=== PATIENT | female | born 1950 | race Caucasian/White ===

== ENCOUNTER 2018-08-10 19:07 | Inpatient (IN) | payer OTHER ==
[~2018-08-10] VITALS: Ht 162.6 cm; Wt 70.5 kg
[~2018-08-10 19:07] MED LIST: ADVAIR 250-501 EACH INH; ALLER-TEC D 5-1 EACH PO; BAYER CHEWABLE81 MG PO; CELEXA 20 MG TA20 MG PO; DIOVAN 80 MG TA80 M1 PER TUBE; LEVOTHYROXINE 0.1 MG PO; MEGARED PLANT-300 MG PO; OCUVITE LUTEIN1 EAC1 PO; OMEPRAZOLE20 M1 PO; OXYCODONE HCL 55 MG PO; STOOL SOFTENER100 MG PO; TOPROL XL50 MG PO; XANAX 0.5 MG0.5 MG PO; ZEGERID OTC 201 EACH PO; ZOCOR20 MG PO
[2018-08-10 19:14] VITALS: BP 204/75
[2018-08-10] MEDS ORDERED: NF (19:41)
[2018-08-10 20:35] LABS: ABSOLUTE NEUTROPHILS 3.6 thou/uL (1.4-8.2); BASOPHILS 0.6 % (0.0-2.0); EOSINOPHILS 1.9 % (0.0-3.0); HEMATOCRIT 33.3 % (37.0-47.0); HEMOGLOBIN 11.6 gm/dL (12.0-15.0); LYMPHOCYTES 24.3 % (24.0-44.0); MCH 33.4 pg (26.0-34.0); MCHC 34.8 g/dL (28.0-37.0); MONOCYTES 8.4 % (1.0-8.0); PLATELET COUNT 182 thou/uL (150-400); POLYS 64.8 % (36.0-66.0); RBC 3.47 mil/uL (4.20-5.00); RDW 12.6 % (10.5-14.5); WBC 5.6 thou/uL (4.0-11.0)
[2018-08-10 20:44] LABS: ANION GAP 7 mmol/L (7-16); BUN 20 mg/dL (7-18); CALCIUM 10.6 mg/dL (8.5-10.1); CHLORIDE 104 mmol/L (98-107); CO2 28 mmol/L (21-32); GLUCOSE 109 mg/dL (74-106); POTASSIUM 3.6 mmol/L (3.5-5.1); SODIUM 139 mmol/L (136-145)
[2018-08-10 20:51] LABS: ALBUMIN 3.9 g/dL (3.4-5.0); SGOT 26 U/L (15-37); SGPT 35 U/L (30-65); TOTAL BILIRUBIN 0.2 mg/dL (<0.1-1.0); TROPONIN-I <0.06 ng/mL (<0.06)
[2018-08-10 21:38] VITALS: BP 130/67
[2018-08-10 21:39] VITALS: BP 130/67
[2018-08-10 22:14] VITALS: BP 130/67
[2018-08-10] MEDS ORDERED: XANAX 0.5 MG0.5 MG PO (22:52)
[2018-08-10 22:55] VITALS: BP 145/57
[2018-08-10] MEDS ORDERED: PROTONIX40 M1 PO (23:00)
[2018-08-10] MEDS ORDERED: PROBIOTIC1 EAC1 PO (23:02)
[2018-08-10] MEDS ORDERED: ZYRTEC10 M5 PO (23:05)
[2018-08-10] MEDS ORDERED: COLACE100 MG PO (23:06)
[2018-08-10 23:57] LABS: CHOLESTEROL 159 mg/dL (<200); HDL CHOLESTEROL 50 mg/dL (>40); LDL CHOLESTEROL 82 mg/dL (<100); TC:HDL 3.2 Ratio (Not establshd); TRIGLYCERIDE 139 mg/dL (<150); VLDL 28 mg/dL (<40)
[2018-08-10 23:58] LABS: SERUM ASSESSMENT Clear
[2018-08-11] MEDS ORDERED: LIPITOR 20 MG T20 M1 PO (00:10)
[2018-08-11 00:50] VITALS: BP 138/50
--- NOTE | 2018-08-11 03:55 | NUR ---
ADMITED FROM ED AROUND 2229. PT STATES PRESENTED TO ED WITH CP RADIATING TO LEFT ARM AND JAW, SOA, NITRO AND MORPHINE ED PER EMAR PAIN RELIEVED. PT DENIES CP, SOA, DIZZINESS, OR ANY RELATED SYMPTOMS SINCE ARRIVING TO CCU. MEDRECONCIL AND ADMISSION COMPLETE, DOCUMENT CONTROL SUPERVISOR SAW PT AT BEDSIDE. PT STATED SHE DID NOT TAKE ANY OF HER MEDS ALL DAY 08/10/18. BP ELEVATED. HS MEDS PER EMAR. AM VITALS BP LOW 100'S ASYMPTOMATIC. PLAN FOR ECHO AND TROPS THIS AM. WILL CONTINUE TO MONITOR AND WITH POC.
[2018-08-11 05:35] VITALS: BP 108/44
[2018-08-11 07:24] VITALS: BP 118/50
--- NOTE | 2018-08-11 08:48 | EKG ---
[address] [address] ELECTROCARDIOGRAM REPORT Name: NHUNG LIN Room #: 216-P ADM IN M.R.#: [id number] ������������������ Admission: 08/10/18 ������������������ Attend Phys: Niko Burgess MD Discharge: ������������������ Date of : 46 Report #: [id number] ����������������������������������������������������������������� [id number] THIS REPORT FOR: //name// [facility] ED Test Date: 2018-08-10 Test Time: 19:20:38 Pat Name: NHUNG LIN Department: Room: 216 Gender: F Esl Professor: MANUEL : 1950 Requested By: Angelic Youssef Order Number: [id number] MD: Juan Alberto Corbin Measurements Intervals [place] Rate: 81 P: 16 ME: 156 QRS: -6 QRSD: 82 T: 82 QT: 353 QTc: 410 Interpretive Statements Sinus rhythm Minimal ST depression, lateral leads Compared to ECG 08/29/2013 18:06:31 ST (T wave) deviation now present Electronically Signed On 08-11-2018 8:48:39 CDT by Juan Alberto Corbin [email or web address] ��������������������������������������������� <ELECTRONICALLY SIGNED> ���������������������������������������� By: Juan Alberto Corbin MD ��������������������������������������������� 08/11/18 0848 19 19 Juan Alberto Corbin MD /EPI
--- NOTE | 2018-08-11 08:50 | EKG ---
[address] [address] ELECTROCARDIOGRAM REPORT Name: NHUNG LIN Room #: 216-P ADM IN M.R.#: [id number] ������������������ Admission: 08/10/18 ������������������ Attend Phys: Niko Burgess MD Discharge: ������������������ Date of : 46 Report #: [id number] ����������������������������������������������������������������� [id number] THIS REPORT FOR: //name// ED Test Date: 2018-08-10 Test Time: 20:37:07 Pat Name: NHUNG LIN Department: Room: 216 Gender: F Assistant Banquet Manager: krystian : 1950 Requested By: Angelic Youssef Order Number: [id number] MD: Juan Alberto Corbin Measurements Intervals [place] Rate: 72 P: 31 CT: 162 QRS: -3 QRSD: 87 T: 73 QT: 411 QTc: 450 Interpretive Statements Sinus rhythm Minimal ST depression, lateral leads Baseline wander in lead(s) V2 Compared to ECG 08/29/2013 18:06:31 ST (T wave) deviation now present Electronically Signed On 08-11-2018 8:50:11 CDT by Juan Alberto Corbin [email or web address] ��������������������������������������������� <ELECTRONICALLY SIGNED> ���������������������������������������� By: Juan Alberto Corbin MD ��������������������������������������������� 08/11/18 0850 36 36 Juan Alberto Corbin MD /EPI
--- NOTE | 2018-08-11 11:33 | 2DMMODE ---
[facility] [address] [place] [address] 2 D/M-MODE ECHOCARDIOGRAM Name: NHUNG LIN Room #: 216-P ADM IN M.R.#: [id number] ������������� Admission: 08/10/18 ������������� Attend Phys: Niko Burgess MD Discharge: ��� ������������� ��� Date of : 46 Date of Service: 08/11/18 1132 �� Report #: [id number] �������� ��������������������������������������������[id number] THIS REPORT FOR: //name// APPROVED REPORT Study performed: 08/11/2018 10:28:53 EXAM: Comprehensive 2D, Doppler, and color-flow Echocardiogram Patient Location: Echo lab Room #: [place] Status: routine BSA: 1.76 HR: 65 bpm BP: 118/50 mmHg Rhythm: NSR Other Information Study Quality: Good Indications CAD Chest Pain Hypertension/HDD CABG 2D Dimensions RVDd: 25.29 mm IVSd: 8.68 (7-11mm) LVOT Diam: 17.26 (18-24mm) LVDd: 42.40 mm PWd: 8.95 (7-11mm) Ascending Ao: 26.55 (22-36mm) LVDs: 27.49 (25-40mm) Aortic Root: 29.18 mm IVC: 17.00 mm Volumes Left Atrial Volume (Systole) Single Plane 4CH: 30.05 mL Single Plane 2CH: 36.98 mL LA ESV Index: 22.00 mL/m2 Aortic Valve AoV Peak Sandro.: 1.48 m/s AO Peak Gr.: 8.77 mmHg LVOT Max P.23 mmHg LVOT Max V: 0.75 m/s RUPERTO Vmax: 1.18 cm2 Mitral Valve [facility] [address] [address] 2 D/M-MODE ECHOCARDIOGRAM Name: NHUNG LIN Room #: 216-P [facility] IN .R.#: [id number] ������������� Admission: 08/10/18 ������������� Attend Phys: Niko Burgess MD Discharge: ��� ������������� ��� Date of : 46 Date of Service: 08/11/18 1132 �� Report #: [id number] �������� ��������������������������������������������[id number] E/A Ratio: 0.9 MV Decel. Time: 192.78 ms MV E Max Sandro.: 0.82 m/s MV A Sandro.: 0.95 m/s MV PHT: 55.91 ms IVRT: 129.18 ms Pulmonary Valve PV Peak Sandro.: 1.06 m/s PV Peak Gr.: 4.55 mmHg Pulmonary Vein P Vein S: 0.43 m/s P Vein A: 0.21 m/s P Vein D: 0.34 m/s P Vein A Dur.: 110.7 msec P Vein S/D Ratio: 1.26 Tricuspid Valve TR Peak Sandro.: 2.60 m/s TR Peak Gr.: 27.02 mmHg PA Pressure: 32.00 mmHg Left Ventricle The left ventricle is normal size. There is normal LV segmental wall motion. There is normal left ventricular wall thickness. The left ventricular systolic function is normal. The left ventricular ejection fraction is within the normal range. LVEF is 60-65%. Mild diastolic dysfunction is present (impaired relaxation pattern).. Right Ventricle The right ventricle is normal size. The right ventricular systolic function is normal. Atria The left atrium size is normal. The right atrium size is normal. Aortic Valve The aortic valve is normal in structure. No aortic regurgitation is present. There is no aortic valvular stenosis. Mitral Valve The mitral valve is normal in structure. Trace to mild mitral regurgitation. No evidence of mitral valve stenosis. Tricuspid Valve The tricuspid valve is normal in structure. There is trace to mild [facility] [address] [place] [address] 2 D/M-MODE ECHOCARDIOGRAM Name: NHUNG LIN Room #: 216-P [facility] IN M.R.#: [id number] ������������� Admission: 08/10/18 ������������� Attend Phys: Niko Burgess MD Discharge: ��� ������������� ��� Date of : 46 Date of Service: 08/11/18 1132 �� Report #: [id number] �������� ��������������������������������������������[id number] tricuspid regurgitation. Estimated PAP 32 mmHg. There is mild pulmonary hypertension. Pulmonic Valve The pulmonary valve is normal in structure. Trace pulmonic regurgitation. Great Vessels The aortic root is normal in size. IVC is normal in size and collapses >50% with inspiration. Pericardium There is no pericardial effusion. <Conclusion> The left ventricular systolic function is normal. There is normal LV segmental wall motion. LVEF is 60-65%. Mild diastolic dysfunction The aortic valve is normal in structure. No aortic regurgitation or stenosis. The mitral valve is normal in structure. Trace to mild mitral regurgitation. There is trace to mild tricuspid regurgitation. Estimated pulmonary artery pressure of 32 mmHg. There is no pericardial effusion. ��������������������������������������������� <ELECTRONICALLY SIGNED> ���������������������������������������� By: Armand Castillo MD, FACC ��������������������������������������������� 08/11/18 1132 1132 113 Armand Castillo MD, FACC /INF
[2018-08-11 12:20] VITALS: BP 132/53
[2018-08-11 15:27] VITALS: BP 119/44
--- NOTE | 2018-08-11 17:07 | NUR ---
ASSUMED CARE OF PT AT SHIFT CHANGE ASSESSMENTS CHARTED. MEDS GIVEN PER JUL. PT ALERT AND ORIENTED, VSS, NO C/O PAIN, O2 SATS WNL ON ROOM AIR, NO S/SX OF CARD OR RESP DISTRESS NOTED. PT DOWN FOR STRESS TEST THIS SHIFT--SEE RESULTS. PT REMAINS ALERT AND ORIENTED UPON RETURN FROM STRESS TEST. PT C/O CHEST PAIN POST STRESS TEST, DR. SUBRAMANIAN AWARE AND TOLD THIS NURSE TO INFORM CARDIOLOGY, CARDS AWARE, NO NEW ORDERS. PT CURRENTLY SITTING UP IN BED COMFORTABLY, DENIES CONCERNS AT THIS TIME. WILL CONT TO MONITOR AND FOLLOW POC.
[2018-08-11 19:01] VITALS: BP 120/43
[2018-08-12 04:19] VITALS: BP 117/49
[2018-08-12 08:00] VITALS: BP 117/48
[2018-08-12 11:49] VITALS: BP 117/48
--- NOTE | 2018-08-12 12:04 | NUR ---
ASSUMED CARE OF PT AT [facility] CHANGE. ASSESSMENT CHARTED. MEDS GIVEN PER JUL. PT ALERT AND ORIENTED, VSS, NO C/O PAIN, O2 SATS WNL ON ROOM AIR. NO S/SX OF CARD OR RESP DISTRESS NOTED. DC ORDERS ACKNOWLEDGED AND IMPLEMENTED. DC PAPERWORK DISCUSSED WITH PT, COMMUNICATES UNDERSTANDING. IV REMOVED, TELE REMOVED. PT LEFT UNIT WITH ALL BELONGINGS ACCOMPANIED BY FRIEND.
[2018-08-12 12:12] VITALS: BP 117/48
--- NOTE | 2018-08-16 07:54 | HC ---
[facility] [address] [address] CONSULTATION Name: NHUNG LIN Room #: 216-P [facility] IN M.R.#: [id number] Admission: 08/10/18 ������������������ Attend Phys: Niko Burgess MD Discharge: 08/12/18 ������������������ Date of : 48 Report #: [id number] THIS REPORT FOR: //name// CC: Dazhopetra Burgess DATE OF SERVICE: 08/11/2018 REASON FOR CONSULTATION: Chest pain, shortness of breath. HISTORY OF PRESENT ILLNESS: The patient is a 68-year-old woman with a history of remote bypass surgery at [facility] (4-vessel), hypertension, dyslipidemia and asthma. She has had a 4- to 5-day history of increasing shortness of breath. This has been in combination with a sinus infection. The patient reports terrible times with her asthma in the spring and thought that this breathlessness was related to flare of her asthma. Over the weekend, she had several episodes of "lung burning," seemed to be improved and some mild wheezing, this seemed to be better with her inhaler. Pain became much more severe at 3:00 yesterday afternoon. This was associated with a headache and pain in the fifth finger of her left hand. She went home, her blood pressure was high and this chest tightness persisted. She presented to the Emergency Department where she received a variety of medicines including morphine and nitroglycerin and over the course of about an hour, her pain relieved. Her EKG demonstrated no acute ST or T-wave changes. Her troponins have been normal. Her pain prior to her bypass was a hot feeling in her chest. She reports no feelings reminiscent to this. She denies palpitations, near syncope or syncope. Over the weekend, she did have some mild lower extremity edema, which has subsequently resolved. It has been a number of years since she has had any cardiovascular testing. ALLERGIES: INCLUDE NAPROSYN. MEDICATIONS: Include aspirin 81 mg daily, metoprolol 25 mg twice daily, levothyroxine 100 mcg daily, citalopram 20 mg daily, alprazolam, Advair Diskus, pantoprazole, valsartan 80 mg daily. PAST MEDICAL HISTORY: Medical records have been reviewed and includes a history of hypertension, dyslipidemia, 4-vessel bypass surgery 13 years ago, total abdominal hysterectomy and tubal . 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 FAMILY HISTORY: Notable for hypertension and coronary artery disease. REVIEW OF SYSTEMS: All systems negative except as that noted above. [facility] [address] [place] [address] CONSULTATION Name: NHUNG LIN Room #: 216-P [facility] IN M.R.#: [id number] Admission: 08/10/18 ������������������ Attend Phys: Niko Burgess MD Discharge: 08/12/18 ������������������ Date of : 46 Report #: [id number] PHYSICAL EXAMINATION: GENERAL: This is a pleasant woman, in no distress. VITAL SIGNS: Blood pressure is 108/44, heart rate is 62 and regular. She is afebrile. HEENT: There are neither xanthelasma, subcutaneous xanthomata, oral mucosal or digital cyanosis or kyphoscoliosis present. CHEST: Clear to auscultation and percussion. CARDIOVASCULAR: Regular rate and rhythm with normal S1, S2. No murmurs or rubs. ABDOMEN: Soft and nontender. EXTREMITIES: Without cyanosis, clubbing or edema. Radial pulses are 2+. NEUROLOGIC: She is alert with a nonfocal exam. LABORATORY DATA: Sodium 139, potassium 3.6, creatinine 1.0. Troponin 0. LDL of 82. White count 5.6, hemoglobin 11.6, hematocrit 33, platelet count 182. Chest x-ray is normal. EKG: Sinus rhythm, minimal nonspecific ST segment abnormality. IMPRESSION: 1. Chest pain with mixed features for ischemia. 2. Coronary artery disease with prior bypass. 3. Hypertension. 4. Dyslipidemia. 5. Asthma. 6. Recent sinus infection. RECOMMENDATIONS: 1. Pharmacologic stress study. 2. Echocardiogram with Doppler. Further thoughts and plans will be forthcoming based on this evaluation. Thank you for asking me to participate in her care. ��������������������������������������������� <ELECTRONICALLY SIGNED> ���������������������������������������� By: Armand Castillo MD, FACC ��������������������������������������������� 08/16/18 0754 0747 15 Armadn Castillo MD, FACC /nt
== END 2018-08-12 12:04 | disposition home or self-care (01) | DRG 303 ==
LOC: ER 19:07 → 2N 21:16 → EROBS 21:16 → 2N 22:07
PROVIDERS: Nurse Practitioner Acute Care; Student in an Organized Health Care Education/Training Program; ADMIT Internal Medicine
DX: I25.110 Atherosclerotic heart disease of native coronary artery with unstable angina pectoris (principal); I10 Essential (primary) hypertension; E78.5 Hyperlipidemia, unspecified; J45.909 Unspecified asthma, uncomplicated; E03.9 Hypothyroidism, unspecified; Z90.710 Acquired absence of both cervix and uterus; Z88.2 Allergy status to sulfonamides; Z88.8 Allergy status to other drugs, medicaments and biological substances; Z82.49 Family history of ischemic heart disease and other diseases of the circulatory system; Z95.1 Presence of aortocoronary bypass graft; Z90.49 Acquired absence of other specified parts of digestive tract; I25.2 Old myocardial infarction; Z79.899 Other long term (current) drug therapy
CPT/HCPCS: 10081

== ENCOUNTER 2018-08-17 02:47 | Inpatient (IN) | payer OTHER ==
[~2018-08-17] VITALS: Ht 162.6 cm; Wt 74.2 kg
[2018-08-17] VITALS (7 sets, daily range): BP systolic 125–158; BP diastolic 51–73
[~2018-08-17 02:47] MED LIST changes: +COLACE100 MG PO; +LIPITOR 20 MG T20 M1 PO; +NF; +PROBIOTIC1 EAC1 PO; +PROTONIX40 M1 PO; +ZYRTEC10 M5 PO
[2018-08-17 03:23] LABS: ABSOLUTE NEUTROPHILS 2.1 thou/uL (1.4-8.2); BASOPHILS 1.2 % (0.0-2.0); EOSINOPHILS 3.1 % (0.0-3.0); HEMATOCRIT 31.7 % (37.0-47.0); HEMOGLOBIN 11.1 gm/dL (12.0-15.0); LYMPHOCYTES 46.8 % (24.0-44.0); MCH 33.7 pg (26.0-34.0); MCHC 34.9 g/dL (28.0-37.0); MCV 96.7 fL (80.0-100.0); MONOCYTES 8.4 % (1.0-8.0); PLATELET COUNT 188 thou/uL (150-400); POLYS 40.5 % (36.0-66.0); RBC 3.28 mil/uL (4.20-5.00); RDW 12.6 % (10.5-14.5); WBC 5.3 thou/uL (4.0-11.0)
[2018-08-17 03:28] LABS: ANION GAP 9 mmol/L (7-16); BUN 24 mg/dL (7-18); CALCIUM 9.5 mg/dL (8.5-10.1); CHLORIDE 105 mmol/L (98-107); CO2 25 mmol/L (21-32); CREATININE 1.1 mg/dL (0.6-1.0); GLUCOSE 122 mg/dL (74-106); POTASSIUM 3.9 mmol/L (3.5-5.1); SODIUM 139 mmol/L (136-145)
[2018-08-17 03:36] LABS: ALBUMIN 3.7 g/dL (3.4-5.0); SGOT 20 U/L (15-37); SGPT 25 U/L (30-65); TOTAL BILIRUBIN 0.2 mg/dL (<0.1-1.0); TOTAL PROTEIN 6.6 g/dL (6.4-8.2); TROPONIN-I <0.06 ng/mL (<0.06)
--- NOTE | 2018-08-17 12:45 | CATHLAB ---
[facility] [address] [place] [address] INVASIVE PROCEDURE REPORT Name: NHUNG LIN Room #: 170-11 ADM IN M.R.#: [id number] ������������� Admission: 08/17/18 ������������� Attend Phys: Rebecca Carlos Discharge: ��� ������������� ��� Date of : 46 Date of Service: 08/17/18 1245 �� Report #: [id number] �������� ��������������������������������������������[id number] THIS REPORT FOR: //name// APPROVED REPORT Study performed: 08/17/2018 07:33:15 Patient Details The patient is a 68 year-old female Event Personnel Armand Castillo Haz Tech, Robbin Meraz RN, Yoly Mann RTR, Joseluis Kamara Valisa Monitor Procedures Performed Left Heart Cath Coronaries, Bypass Grafts [id number] LHCCORCABG, Supravalvular aortography Indication Chest pain Previous Procedures/Diagnoses Previous CABG Procedure Narrative The patient was brought electively to the Cardiac Catheterization Laboratory and was prepped and draped in a sterile manner. The Right Groin^ was infiltrated with 1% Lidocaine subcutaneous anesthesia. A PINNACLE 6FR Sheath #[id number] sheath was inserted into the RFA^. Coronary angiography was performed using coronary diagnostic catheters. The right coronary system was accessed and visualized with a JR4 catheter. The left coronary system was accessed and visualized with a JL4 catheter. The left ventricle was accessed and visualized with a PIGTAIL catheter. Left ventriculogram was performed in MARR projection. Closure device was deployed with a 6 Fr MYNXGRIP 6/7F #[id number]. The patient tolerated the procedure well and there were no complications associated with the procedure. There was no hematoma. Intraoperative Conscious Sedation Sedation start time: 750 Case end Time: 09 Fentanyl 150 mcg Versed 3 mg Fluoro Time: 15.46 minutes [facility] [address] [place] [address] INVASIVE PROCEDURE REPORT Name: NHUNG LIN Room #: [address] IN ..#: [id number] ������������� Admission: 08/17/18 ������������� Attend Phys: Rebecca Carlos Discharge: ��� ������������� ��� Date of : 46 Date of Service: 08/17/18 1245 �� Report #: [id number] �������� ��������������������������������������������[id number] Dose: DAP 49550.30 cGycm2 1555 mGy Contrast Type and Amount: Visipaque 330 ml Coronary Angiography The patient's coronary anatomy is right dominant. Diagnostic Cath Left Main Normal left main LAD Occluded LAD at or near its origin Widely patent and normal left internal mammary to the LAD. Excellent runoff into a normally appearing mid to distal LAD Diagonal 1 There was a small proximally rising diagonal branch, not completely protected by retrograde CLARK flow due to disease proximal to the CLARK insertion site. Circumflex Occluded mid circumflex OM1 Patent vein graft to a proximal marginal or ramus branch Right Coronary Occluded mid right coronary. Right coronary dominant Widely patent vein graft to the distal right coronary. Excellent proximal and distal anastomotic sites R PDA Mild ostial PDA stenosis of 30% RPLV Severe variable 75-90% proximal posterior lateral branch stenoses Left Ventriculography The left ventricle is normal in size with normal contractility. The left ventricular ejection fraction is estimated to be 60-65%. Left ventricular wall motion abnormalities are not present. There is no mitral insufficiency. Supravalvular aortography demonstrated no aortic insufficiency. No proximal dissection. Two bypass conduits were detected non-selectively Hemodynamics The aortic pressure is 148/60 mmHg with a mean of 72 mmHg. The left ventricular pressure is 132/11 mmHg with a mean of mmHg. The left ventricular end diastolic pressure is 28 mmHg. PCI Technique Lesion Anticoagulation was achieved with Heparin, Integrilin. Patient was preloaded with Plavix. Percutaneous coronary intervention was performed on the Unspecified. A LAUNCHER 6FR RCB #[id number] Guide Catheter was used to engage the ostium. A Luge Wire .014 x 182CM #[id number] Interventional Guidewire was used to cross the lesion. BALLOON DILATION [facility] [address] [place] [address] INVASIVE PROCEDURE REPORT Name: NHUNG LIN Room #: [address] IN .R.#: [id number] ������������� Admission: 08/17/18 ������������� Attend Phys: Rebecca Carlos Discharge: ��� ������������� ��� Date of : 46 Date of Service: 08/17/18 1245 �� Report #: [id number] �������� ��������������������������������������������[id number] A Balloon catheter Euphora RX 2.5 x 12 #[id number] was inserted and inflated up to 8.00atm for 41seconds. Additional Inflation: 8.00atm for 24seconds. STENT DEPLOYMENT A drug-eluting stent XIENCE ALEXSANDRA RX 2.5 X 33 #[id number] was inserted and inflated up to 16.00atm for 30seconds. Additional Inflation: 8.00atm for 40seconds. 0% residual stenosis remained. POST STENT DEPLOYMENT BALLOON DILATION A Balloon catheter TREK NC RX 2.5 X 15 #[id number] was inserted and inflated up to 18.00atm for 28seconds. Additional Inflation: 22.00atm for 26seconds. Additional Inflation: 22.00atm for 29seconds. The stent was postdilated to 2.75 mm with a noncompliant balloon. 0% residual stenosis remained. Final angiography reveals 0 % stenosis with MARY 3 flow. Conclusion 1. Severe muscogee coronary artery disease. 2. Normal global and regional left ventricular systolic function. EF 65% 3. Patent left internal mammary to the LAD 4. Patent vein graft to a high marginal branch or ramus intermedius 5. Patent vein graft to the distal right coronary with severe disease in a large, muscogee posterolateral branch, stented with a 2.5 x 33 mm Alexsandra medicated stent Recommendations Daily ASA with Plavix for at least one year Cardiac Rehabilitation Referral Aggressive Medical Therapy ��������������������������������������������� <ELECTRONICALLY SIGNED> ���������������������������������������� By: Armand Castillo MD, FAC ��������������������������������������������� 08/17/18 1245 1245 1245 Armand Castillo MD, FACC /INF
--- NOTE | 2018-08-17 16:56 | EKG ---
[place] [address] [facility] [employer] [place] [address] ELECTROCARDIOGRAM REPORT Name: NHUNG LIN Room #: 214-P ADM IN M.R.#: [id number] ������������������ Admission: 08/17/18 ������������������ Attend Phys: Rebecca Amado Discharge: ������������������ Date of : 46 Report #: [id number] ����������������������������������������������������������������� [id number] THIS REPORT FOR: //name// [facility] ED Test Date: 2018-08-17 Test Time: 03:03:04 Pat Name: NHUNG LIN Department: Room: 214 Gender: F Cut Off Man: VARINDER : 1950 Requested By: Angelic Youssef Order Number: [id number] MD: Armand Castillo Measurements Intervals [place] Rate: 53 P: 40 OR: 170 QRS: 3 QRSD: 90 T: 44 QT: 430 QTc: 404 Interpretive Statements Sinus bradycardia Nonspecific ST segment abnormality Compared to ECG 08/10/2018 20:37:07 No significant changes Electronically Signed On 08-17-2018 16:55:53 CDT by Armand Castillo [email or web address] ��������������������������������������������� <ELECTRONICALLY SIGNED> ���������������������������������������� By: Armand Castillo MD, [facility] ��������������������������������������������� 08/17/18 1655 2 2 Armand Castillo MD, [facility] /EPI
--- NOTE | 2018-08-17 18:19 | NUR ---
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 OFF BED REST. RT GRION ACESSES DRY AND INTACT, SMALL AMOUNT BLD NOTED. PATIENT HAS FULL SENSATION AND STRENGTH TO RLLE. VSS. C/O CHEST, ZANA JAWS AND LT ARM PAIN, MEDICATED AN DR MONIQUE IS AWARE. AND WILL CONTINUE WITH POC.
[2018-08-18 05:10] LABS: BASOPHILS 0.4 % (0.0-2.0); EOSINOPHILS 1.6 % (0.0-3.0); HEMATOCRIT 28.7 % (37.0-47.0); HEMOGLOBIN 9.8 gm/dL (12.0-15.0); MCH 33.6 pg (26.0-34.0); MCHC 34.3 g/dL (28.0-37.0); MONOCYTES 8.2 % (1.0-8.0); PLATELET COUNT 151 thou/uL (150-400); POLYS 64.8 % (36.0-66.0); RBC 2.93 mil/uL (4.20-5.00); RDW 12.6 % (10.5-14.5); WBC 6.1 thou/uL (4.0-11.0)
[2018-08-18 05:26] LABS: ALBUMIN 3.2 g/dL (3.4-5.0); CALCIUM 8.9 mg/dL (8.5-10.1); POTASSIUM 3.9 mmol/L (3.5-5.1); TOTAL BILIRUBIN 0.3 mg/dL (<0.1-1.0)
[2018-08-18 05:35] LABS: TROPONIN-I 16.92 ng/mL (<0.06)
[2018-08-18 05:40] VITALS: BP 121/55
[2018-08-18 07:22] VITALS: BP 123/61
--- NOTE | 2018-08-18 07:26 | NUR ---
ASSUME CARE 1900. PT/VITALS STABLE. COMPLAINS OF INTERMITTENT PAIN IN [place] THAT RADIATES TO JAW AND LEFT ARM. CARDIOLOGISTS AWARE. CARDIAC CATH 08/17/18 WITH 1 JUAN CARLOS DEPLOYED TO PROXIMAL POSTERIOR LATERAL BRANCH. STR ON MONITOR. ASSESSMENT CHARTED. PROGRESSING WELL WITH POC. PLAN IS A POSSIBLE DISCHARGE WITHIN 1-2 DAYS. WILL CONTINUE TO MONITOR AND FOLLOW WITH POC
--- NOTE | 2018-08-18 08:24 | EKG ---
[address] [place] [address] ELECTROCARDIOGRAM REPORT Name: NHUNG LIN Room #: 214-P ADM IN M.R.#: [id number] ������������������ Admission: 08/17/18 ������������������ Attend Phys: Rebecca Amado Discharge: ������������������ Date of : 46 Report #: [id number] ����������������������������������������������������������������� [id number] THIS REPORT FOR: //name// [facility] Test Date: 2018-08-18 Test Time: 07:19:18 Pat Name: NHUNG LIN Department: Room: 214 P Gender: F Sack Sewer Machine: TANNA : 1950 Requested By: Armand Castillo Order Number: [id number] MD: Juan Alberto Corbin Measurements Intervals [place] Rate: 67 P: 43 [place]: 154 QRS: -10 QRSD: 86 T: 157 QT: 413 QTc: 436 Interpretive Statements Sinus rhythm Borderline repolarization abnormality Compared to ECG 08/17/2018 03:03:04 Sinus bradycardia no longer present ST (T wave) deviation no longer present Electronically Signed On 08-18-2018 8:23:49 CDT by Juan Alberto Corbin [email or web address] ��������������������������������������������� <ELECTRONICALLY SIGNED> ���������������������������������������� By: Juan Alberto Corbin MD ��������������������������������������������� 08/18/18822 8 8 Juan Alberto Corbin MD /EPI
[2018-08-18 10:47] VITALS: BP 103/44
[2018-08-18 14:39] VITALS: BP 98/46
--- NOTE | 2018-08-18 16:44 | NUR ---
ASSESSMENT CHARTED - MEDS PER JUL - GIVEN HYDROCODONE FOR CO'S OF PAIN IN L SHOULDER ARM WITH MOD RELIEF. HOA DIET AND FLUIDS WITH NO CO'S OF NAUSEA. AMBULATED IN THE HALLS TODAY - STEADY ON FEET - NO SOA OF NOTED. PT WITH NO CO'S AT THE PRESENT TIME APPEARS TO BE RESTING COMFORTABLY.
[2018-08-18 19:20] VITALS: BP 108/40
[2018-08-19 03:42] VITALS: BP 106/58
--- NOTE | 2018-08-19 04:15 | NUR ---
ASSESSMENT DOCUMENTED.PT BEEN RESTING IN NO ACUTE DISTRESS.A/OX4.VSS.S/P CADIAC JEANNINE WITH STENT PLACED.RIGHT GROIN WITHOUT HEMATOMA,SOME BRUISING NOTE.SITE SOFT.PT DENIES CHEST PAIN.PT DENIES PAIN OR ANY DISTRESS AT THIS TIME.POC IS TO DISCHARGE TO HOME TODAY.
[2018-08-19] MEDS ORDERED: ASPIRIN325 PO (07:48)
[2018-08-19] MEDS ORDERED: CLOPIDOGREL75 MG PO (07:48)
[2018-08-19 08:30] VITALS: BP 107/52
--- NOTE | 2018-08-19 09:31 | EKG ---
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 [employer]: TANNA : 1950 Requested By: Armand Castillo Order Number: [id number] MD: Armand Castillo Measurements Intervals [place] Rate: 70 P: 44 MA: 148 QRS: -11 QRSD: 75 T: 242 QT: 557 QTc: 602 Interpretive Statements Sinus rhythm Abnormal R-wave progression, early transition Nonspecific ST and T wave abnormality Compared to ECG 08/18/2018 07:19:18 no significant change was found Electronically Signed On 08-19-2018 9:31:13 CDT by Armand Castillo [email or web address] ��������������������������������������������� <ELECTRONICALLY SIGNED> ���������������������������������������� By: Armand Castillo MD, [facility] ��������������������������������������������� 08/19/18 0931 0 0 Armand Castillo MD, [facility] /EPI
[2018-08-19 10:39] VITALS: BP 107/52
--- NOTE | 2018-08-19 11:46 | NUR ---
ASSESSMENT DOCUMENTED. PT ALERT AND ORIENTED. VSS. RECEIVED PRN PAIN MED WITH PARTIAL RELIEF. BRUIZING NOTED ON THE RIGHT GROIN INCISION. NO HEMATOMA NOTED. ORDERS GIVEN TO DISCHARGE PT TO HOME. DISCHARGE INSTRUCTIONS GIVEN TO PT. PT VERBERLIZE UNDERSTANDING.
== END 2018-08-19 11:20 | disposition home or self-care (01) | DRG 246 ==
LOC: ER 02:47 → EROBS 04:04 → 2N 04:04 → EROBS 07:41 → 2N 13:50 → ENTRNSPT 08-19 10:49 → EDTRNSPTSTS 08-19 11:04 → 2N 08-19 11:20
PROVIDERS: Internal Medicine; Nurse Practitioner; Student in an Organized Health Care Education/Training Program; ADMIT Hospitalist
DX: I21.4 Non-ST elevation (NSTEMI) myocardial infarction (principal); I50.33 Acute on chronic diastolic (congestive) heart failure; I10 Essential (primary) hypertension; J45.909 Unspecified asthma, uncomplicated; E03.9 Hypothyroidism, unspecified; I25.10 Atherosclerotic heart disease of native coronary artery without angina pectoris; N19 Unspecified kidney failure; E78.5 Hyperlipidemia, unspecified; Z90.49 Acquired absence of other specified parts of digestive tract; Z90.710 Acquired absence of both cervix and uterus; Z88.2 Allergy status to sulfonamides; Z88.8 Allergy status to other drugs, medicaments and biological substances; Z95.1 Presence of aortocoronary bypass graft; Z95.5 Presence of coronary angioplasty implant and graft; Z82.49 Family history of ischemic heart disease and other diseases of the circulatory system; I25.2 Old myocardial infarction; Z79.899 Other long term (current) drug therapy; Z79.82 Long term (current) use of aspirin
CPT/HCPCS: 10081

== ENCOUNTER → 2019-09-30 | Outpatient (CLI) | payer OTHER ==
[~2019-09-30] MED LIST changes: +ASPIRIN325 PO; +CLOPIDOGREL75 MG PO
== END ==
LOC: SJCVC 09:53
DX: I21.29 ST elevation (STEMI) myocardial infarction involving other sites (principal); R94.31 Abnormal electrocardiogram [ECG] [EKG]; I25.10 Atherosclerotic heart disease of native coronary artery without angina pectoris; I10 Essential (primary) hypertension; E78.5 Hyperlipidemia, unspecified; I65.23 Occlusion and stenosis of bilateral carotid arteries; Z95.1 Presence of aortocoronary bypass graft

== ENCOUNTER → 2020-04-26 | Outpatient (CLI) | payer OTHER | LOC: SJCVCIMAG 08:30 | PROVIDERS: ATTEND Internal Medicine | DX: I65.23 Occlusion and stenosis of bilateral carotid arteries (principal); I49.1 Atrial premature depolarization; I25.10 Atherosclerotic heart disease of native coronary artery without angina pectoris; I10 Essential (primary) hypertension; E78.5 Hyperlipidemia, unspecified; E04.1 Nontoxic single thyroid nodule; I25.2 Old myocardial infarction; Z95.1 Presence of aortocoronary bypass graft; Z79.82 Long term (current) use of aspirin; Z79.899 Other long term (current) drug therapy ==

== ENCOUNTER → 2020-05-24 | Outpatient (CLI) | payer OTHER | LOC: SJCVCIMAG 09:01 | PROVIDERS: ATTEND Internal Medicine | DX: E04.2 Nontoxic multinodular goiter (principal); Z88.2 Allergy status to sulfonamides; Z88.8 Allergy status to other drugs, medicaments and biological substances; Z91.048 Other nonmedicinal substance allergy status; Z72.89 Other problems related to lifestyle ==